=== PATIENT | male | born 1960 | race Caucasian/White ===

== ENCOUNTER → 2022-03-30 14:20 | Outpatient (BNVA) | payer BC, SELFPAY | PROVIDERS: PCP Family Medicine; Visit Provider Internal Medicine Cardiovascular Disease | DX: R07.9 Chest pain, unspecified (principal); I31.9 Disease of pericardium, unspecified; I25.10 Atherosclerotic heart disease of native coronary artery without angina pectoris; E78.5 Hyperlipidemia, unspecified; Z95.5 Presence of coronary angioplasty implant and graft | CPT/HCPCS: 36415; 80053; 80061; 83721; 85025; 85651; 86140 ==

== ENCOUNTER 2022-04-21 11:32 | Outpatient (CLI) | payer BC, SELFPAY ==
--- NOTE | 2022-04-21 11:15 | USCV_ITS ---
Malick Schilling Age: 61 Gender: M : 1960 Exam Date: 04/21/2022 11:55 Ordering Phys: Elise Holliday MD Technologist: BA Exam Location: [facility] [place] Indication: pericardial effusion BP: 112 / 76 HR: 65 Rhythm: Sinus Technical Quality: Adequate MEASUREMENTS (Male / Female) Normal Values 2D ECHO LV Diastolic Diameter PLAX 6.0 cm 4.2 - 5.9 / 3.9 - 5.3 cm LV Systolic Diameter PLAX 4.3 cm IVS Diastolic Thickness 0.6 cm 0.6 - 1.0 / 0.6 - 0.9 cm IVS Systolic Thickness 1.3 cm LVPW Diastolic Thickness 0.8 cm 0.6 - 1.0 / 0.6 - 0.9 cm LVPW Systolic Thickness 1.3 cm LVOT Diameter 2.4 cm LV Ejection Fraction 2D Teich 55.5 % LV Ejection Fraction MOD 2C 50.1 % LV Ejection Fraction 2C AL 47.6 % LA Diameter 3.9 cm IVC Diameter 1.9 cm M-MODE Aortic Annulus Diameter 2.8 cm LA Ao Ratio MM 1.6 MV E Point Septal Separation 0.5 cm DOPPLER AV Peak Velocity 105.0 cm/s LVOT Peak Velocity 87.0 cm/s AV Area Cont Eq vti 3.2 cm squared AV Area Cont Eq pk 3.7 cm squared MV Peak Velocity 73.0 cm/s MV Area PHT 5.0 cm squared Mitral E to A Ratio 1.0 MV E' Velocity 74.0 cm/s TR Peak Velocity 187.5 cm/s TR Peak Gradient 14.1 mmHg TR Mean Velocity 168.7 cm/s TR Mean Gradient 12.2 mmHg TR Velocity Time Integral 73.1 cm TV Peak E Velocity 74.0 cm/s Right Atrial Pressure 3.0 mmHg Pulmonary Artery Systolic Pressu 17.1 mmHg PV Peak Velocity 70.0 cm/s FINDINGS Left Ventricle Left ventricle is mildly dilated. LV systolic function is normal with EF of 50-55%. No regional wall motion abnormalities are seen. Right Ventricle Normal in size and function. Right Atrium Normal in size Left Atrium Normal in size Mitral Valve Structurally normal mitral valve. Trace mitral regurgitation. Aortic Valve Aortic valve is thickened. No significant stenosis or regurgitation. Tricuspid Valve Mild tricuspid regurgitation. Pulmonary artery systolic pressure is normal. Pulmonic Valve Not well visualized. Mild pulmonic regurgitation. Pericardium Normal. No significant pericardial effusion. Aorta Normal in size IVC IVC appears to be normal CONCLUSIONS Left ventricle is mildly dilated LV systolic function is normal with EF of 50-55% Trace mitral regurgitation Mild tricuspid regurgitation Mild pulmonic regurgitation No comparison studies are available Félix Cantu MD (Electronically Signed) Final Date: 29 April 2022 11:54 S
== END 2022-04-21 11:33 | disposition home or self-care (01) ==
PROVIDERS: PCP Family Medicine; Visit Provider Family Medicine
DX: I31.9 Disease of pericardium, unspecified (principal); I08.1 Rheumatic disorders of both mitral and tricuspid valves
CPT/HCPCS: 93306

== ENCOUNTER 2022-05-17 06:39 | Outpatient (CLI) | payer BC, SELFPAY ==
--- NOTE | 2022-05-17 | ECG_ITS ---
[facility] Test Date: 2022-05-17 Pat Name: Malick Schilling Department: Room: Gender: Male Gm/Svp [employer] Business: : 1960 Requested By: Juany Balderas Order Number: [id number] Castro MD: Juany Balderas M.D. Interpretive Statements NAME OF STUDY: LEXISCAN SESTAMIBI STRESS TEST INDICATION: Chest Pain PROCEDURE: At the baseline, the blood pressure was 121/95 mmHg with a heart rate of 68 beats per min. The electrocardiogram showed sinus rhythm with artifact. Nonspecific ST-T wave changes. The Lexiscan was infused over a period of 20 seconds. A total of 0.4 milligrams of Lexiscan was infused. The stress phase was continued for a total of 5 minutes. Heart rate at the end of the stress phase was 73 bpm with a blood pressure of 128/86 mmHg. The EKG at the peak infusion revealed sinus rhythm with no significant ST-T wave changes. The study was terminated to protocol completion. Sestamibi was injected 20 seconds after the Lexiscan infusion. Blood pressure at the end of the recovery phase was 113/83 mmHg with a heart rate of 73 beats per minute. CONCLUSION: 1. No significant EKG changes with the] LexiScan infusion. 2. No LexiScan induced chest pain or cardiac arrhythmia. 3. Normal blood pressure and heart rate response. 4. Sestamibi/sestamibi perfusion scan pending; see separate report. Electronically Signed On 05-22-2022 18:27:10 TRICOT KNITTER by Juany Balderas M.D. [id number]
--- NOTE | 2022-05-17 06:53 | NMCV_ITS ---
NM martina perf SPECT r/s* [id number] SchillingMalick Age: 61 Gender: M : 1960 Exam Date: 05/17/2022 07:53 Ordering Phys: Juany Balderas MD ([email or web address]) Technologist: BRAIN Herbert Exam Location: [facility] Indications: Exertional SOB, ATHEROSCLEROTIC HEART DISEASE OF [place] CORONARY ARTERY STRESS TEST Please see separate stress test report in [facility] for full findings IMAGE PROTOCOL Rest/Stress 1 Lexiscan Day Radiopharmaceutical Dose (mCi) Administration Site Administered by Rest: Tc-99m 10.7 IV BRAIN Solo Sestamibi Stress:Tc-99m 32.9 IV BRAIN Solo Sestamibi Rest: 05/17/2022 60 Discovery 630 Stress: 05/17/2022 30 Discovery 630 0.4mg Lexiscan. Images obtained in supine and prone position. SPECT RESULTS Technical Quality: Excellent Raw Data Analysis: Normal Image Corrections: No attenuation or motion correction applied Summed Stress Score: 2 Summed Rest Score: 0 Summed Difference Score: 2 PERFUSION FINDINGS Small sized perfusion abnormality of mild severity of basal inferior wall on stress images. FUNCTIONAL RESULTS (calculated via Gated SPECT) Stress Image LV EF (%): 58 Stress EDV (mL):115 TID: 0.77 Stress ESV (mL):48 FUNCTIONAL FINDINGS: The left ventricle is normal in size. Transient Ischemia Dilatation of 0.77. The left ventricular ejection fraction is normal with a value of 58%. There is normal left ventricular wall thickening. IMPRESSIONS 1. Small sized reversible perfusion abnormality of mild severity of basal inferior wall. 2. This may represent small area of ischemia in RCA territory. 3. Overall left ventricular systolic function is normal without regional wall motion abnormalities, LVEF=58%. 4. EKG portion of the study will be reported separately. Juany Balderas MD (Electronically Signed) Final Date: 20 May 2022 19:39 S
[2022-05-17 07:14] VITALS: BMI 34.7
[2022-05-17] MEDS: regadenoson 0.4 Mg/5 ml Syringe IVP (08:22)
[2022-05-17 08:40] VITALS: BP 113/83; PULSE 86
== END 2022-05-17 06:40 | disposition home or self-care (01) ==
PROVIDERS: PCP Family Medicine; Visit Provider Internal Medicine Cardiovascular Disease
DX: I25.10 Atherosclerotic heart disease of native coronary artery without angina pectoris (principal)
CPT/HCPCS: 36415; 78452; 93017; 96374; A9500; J2785

== ENCOUNTER 2022-06-08 05:49 | Outpatient (CLI) | payer BC, SELFPAY ==
[2022-06-08] VITALS (12 sets, daily range): BP systolic 106–137; BP diastolic 61–99; PULSE 58–90; RESP 9–26; TEMP 36.4–36.9; O2SAT 91–95; BMI 34.7
--- NOTE | 2022-06-08 06:00 | XACV_ITS ---
Exam Room: 2 Ht: 175 cm Wt: 107 kg BSA: 2.32 m2 Gender: Male : 1960 Any Known Allergies: No known allergies Exam Priority: Routine Procedure(s): Procedure Description: Diagnostic procedure Procedure Description: PCI procedure Procedure Description: Drug Eluting Coronary Stent Procedure Description: PTCA Procedure Description: Coronary Angiography Diagnostic Cath Status: Elective Diagnostic Findings * Patient with fairly typical rest angina at night associated with shortness of breath. Stress testing mildly abnormal in the distribution of the right coronary artery only. Previous stents in the LAD and right coronary arteries. * Procedure was completed from the right radial artery. The left main coronary artery is normal and bifurcates into the left anterior descending and circumflex. The circumflex is a relatively small vessel and contains diffuse luminal irregularities. There are no significant stenoses. The LAD is a large vessel and there is stents placed proximally. Just beyond the stents there were 2 small diagonal branches which come off in the same location. Just at this point of the distal stent, 2 diagonal branches there is a 70 to 80% stenosis of the mid LAD which is very tortuous. The remainder of the LAD appears normal. The right coronary artery is the dominant vessel. There is a cross's crook appearance to this vessel. In the proximal portion in the cross's crook there is a 90% stenosis. The stents are located in the mid and distal portions. The stents in the mid vessel are patent. More distally prior to the takeoff of the posterior descending artery there is severe in-stent restenosis with near total occlusion of the distal right coronary artery.. PCI Status: Elective PCI LVEF Assessed: No PCI Indication: NSTE - ACS Interventional Findings * Initially the area of the distal right coronary artery underwent plain old balloon angioplasty with a noncompliant balloon. In the area of the most severe stenosis there was fairly significant residual stenosis after the angioplasty was completed. Therefore in that area I placed a short 3.5 mm drug-eluting stent to treat as a stent within a stent. I then primarily stented the proximal right coronary artery with a 3.5 x 12 mm stent. My belief is that his symptoms are coming from the right coronary artery and that is where the ischemia is on stress testing. I considered intervening on the mid LAD but given the tortuosity, distal stent in that area and two branch arteries I was concerned that I could not get either a balloon or a stent into the lesion. Because there is no ischemia I chose to leave this alone. Decision for PCI with Surgical Consult: No PCI for Multi-vessel Disease: No Conclusions 1. In-stent restenosis of the distal right coronary artery which undergoes balloon angioplasty and restenting. Primary stenting of the proximal right coronary artery. Mid LAD lesion treated medically. Recommendations * Medical therapy. Interventional RX Recommendation: PCI w/o planned CABG Diagnostic RX Recommendation: PCI w/o planned CABG Anticoagulation: Heparin Pressures Phase:Rest AO : 119 / 90 ( 104 ) @ 7:51:00 AM 109 / 78 ( 93 ) @ 8:04:00 AM 109 / 83 ( 95 ) @ 8:11:00 AM 133 / 100 ( 115 ) @ 8:20:00 AM 119 / 89 ( 103 ) @ 8:22:00 AM 124 / 95 ( 110 ) @ 8:29:00 AM Clinical Evaluation EBL: 5mL-10mL Procedural Details Procedure Consent Obtained. Admit Source: Out Patient. Pre-Procedure Time Out. Identified patient by full name and date of as verbalized by the patient/guarantor. Does the consent match the physician's order: Yes. Accurate & Complete Informed Consent: Yes. Inpatient/Outpatient History & Physical on Chart: Yes. If H&P is completed, is and addenduem needed: Yes; If yes, is the addendum complete: Yes. Visualize and Verify Site with Patient/Guarantor: N/A. Relevant Radiology Images available: N/A. Pre-op teaching completed and patient verbalized understanding. The risks, benefits, and alternatives of sedation and/or procedure were discussed by physician. The patient agrees to continue. Procedure started. [facility] Clinical Fraility Score: 3: Managing Well. Placement Secretary Indications: Worsening Angina. Chest Pain Symptom Assessment: Typical Angina Symptoms. Correct patient, site and procedure confirmed by cath team. Current diagnosis: Chest Pain. PERRLA. Strong, equal hand client development director bilaterally. Lungs clear x 5 lobes. IV Site on Arrival: 20 gauge in the left anticubital. IV Fluids: 0.9% NaCl at KVO. 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 Pre Procedural Pulses: bilateral dorsalis pedis was 3+. Pre Procedural Pulses: bilateral radial was 3+. Oxygen started at 2liters/min via nasal canula. right groin was prepped with chloroprep then draped in the usual sterile fashion. right radial was prepped with chloroprep then draped in the usual sterile fashion. Baseline sample Acquired. HR: 64 BPM. Physician notified. Physician arrived. Physician scrubbed in. Immediate Pre-Procedure Time Out. Correct Patient: Yes; Correct Procedure: Yes; Correct Site: Yes; Correct Patient Position: Yes; Correct Supplies: Yes; Dried Flammable Prep: Yes; Blood Products Available: N/A;. Lidocaine 1% infiltrated to the right radial. Arterial access obtained. A 6 upper sorbian TIG catheter in over wire. Catheter redirected to the RCA. Catheter removed over the exchange wire. A 6 upper sorbian JR4 catheter in over wire. Multiple views taken of left coronary artery. Multiple views taken of right coronary artery. Catheter removed over the exchange wire. 6 upper sorbian JR 4 guide catheter was inserted over the wire. [place] guidewire was advanced through the guide catheter to lesion in the distal RCA. Balloon inserted to lesion in the distal RCA. Inflation number : 1 A MDT NC EUPHORA RX [id number] BALLOON was prepped and advanced across the Dist RCA , then inflated to 12 TERI for 0:15 seconds. Inflation number: The MDT NC EUPHORA RX [id number] BALLOON was reinflated across the Dist RCA, to 12 TERI for 0:15 seconds. Inflation number: 3 The MDT NC EUPHORA RX [id number] BALLOON was reinflated across the Dist RCA, to 20 TERI for 0:20 seconds. Results checked. Balloon out. Balloon inserted to lesion in the distal RCA. Inflation number : 4 A MDT NC EUPHORA RX [id number] BALLOON was prepped and advanced across the Dist RCA , then inflated to 12 TERI for 0:30 seconds. Inflation number: 5 The MDT NC EUPHORA RX [id number] BALLOON was reinflated across the Dist RCA, to 12 TERI for 0:20 seconds. Results checked. Balloon out. Inflation Number : 6 A MDT R SARIAH 3.5X8 LAUREN -Lot Number# [id number] was prepped and advanced across the Dist RCA. The stent was deployed at 16 TERI for 0:26 seconds. EXP 09/08/24. Results checked. Stent balloon out over wire. Inflation Number : 1 A MDT R SARIAH 3.5X12 LAUREN -Lot Number# [id number] was prepped and advanced across the Prox RCA. The stent was deployed at 14 TERI for 0:26 seconds. EXP 11/21/23. Results checked. Stent balloon and wire out. Physician review of films. Guide catheter out over the exchange wire. 6 upper sorbian XB 3.5 guide catheter was inserted over the wire. Family updated. Guide seated in the LCS. [employer] guidewire was advanced through the guide catheter to lesion in the mid LAD. Guidewire advanced across lesion. 4.0mm x 8mm stent unable to cross. Removed intact. Wire removed. Guide removed over the wire. Physician scrubbed out. A TR Band was successful obtaining hemostatsis at the Right Radial artery insertion site. TR band placed. Hemostasis obtained. Post Procedure: Pulses reassessed and unchanged. PERRLA. Strong, equal hand client development director bilaterally. No VTE prophylaxis required. Medication waste:75 mcg Fentanyl, 1000 units Heparin, 49.8 mg Heparin. Total IV fluids: 82 mL. Fluoro: 15:09. Contrast type used: Omnipaque 300 mgI/mL, 500 mL bottle. Omnipaque 218 ml. Post-op diagnosis: CAD. Complications: NONE. Estimated blood loss: 5mL-10mL. Responsiveness - Normal response to verbal stimuli; alert and oriented, PERRLA. Airway - Unaffected, no intervention required; spontaneous ventilation. Circulation: W/N/L, pulses unchanged. Nausea/Vomiting: No. Procedure completed. Patient transferred by wheelchair to CPRU. Current Diagnosis : Chest Pain. Vital chart was stopped. Access Site Site: Right Radial artery Sheath Size: 6 Fr Hemostasis Method: TR Band Hemostasis Success: Successful Procedure Medications Start: 7:35 AM Stop: 7:35 AM Medication: Versed Amount: 1 mg Route: I.V. Start: 7:35 AM Stop: 7:35 AM Medication: Fentanyl Amount: 50 mcg Route: I.V. Start: 7:43 AM Stop: 7:43 AM Medication: Versed Amount: 1 mg Route: I.V. Start: 7:46 AM Stop: 7:46 AM Medication: Fentanyl Amount: 25 mcg Route: I.V. Start: 7:48 AM Stop: 7:48 AM Medication: Versed Amount: 1 mg Route: I.V. Start: 7:50 AM Stop: 7:50 AM Medication: Nitrogylcerin Amount: 200 mcg Route: I.A. Start: 7:51 AM Stop: 7:51 AM Medication: Heparin Amount: 5000 units Route: I.V. Start: 8:24 AM Stop: 8:24 AM Medication: Fentanyl Amount: 25 mcg Route: I.V. Start: 8:25 AM Stop: 8:25 AM Medication: Versed Amount: 1 mg Route: I.V. Start: 8:34 AM Stop: 8:34 AM Medication: Versed 1 mg and Fentanyl 25 mcg Amount: 1 Route: I.V. I, the attending physician, have reviewed and verified all procedure medications. Yes, all medications given per verbal order History/Risk Factors Hypertension: Yes Dyslipidemia: Yes Peripheral Arterial Disease (PAD): No Myocardial Infarction (UT): Yes Obesity: Yes Renal Disease: No Tobacco Use: Former Prior Interventions PCI: Yes CABG: No Valve Surgery: No Date of PCI: 06/04/2013 Report Signatures Finalized by Dr. Fidel Rosado MD on 06/08/2022 09:11 AM
[2022-06-08] MEDS: diphenhydrAMINE 50 mg Capsule PO (06:30)
[2022-06-08 06:37] LABS: Basophils % 0.3 %; Eosinophils # 0.1 10^3/uL (0.0-0.8); Eosinophils % 1.4 %; Hematocrit 44.8 % (42.0-52.0); Hemoglobin 15.2 g/dL (11.7-16.6); Lymphocytes # 2.4 10^3/uL (0.8-4.8); Mean Corpuscular HGB Conc 33.9 g/dL (30.0-36.0); Mean Corpuscular Hemoglobin 31.7 pg (28.0-34.0); Mean Corpuscular Volume 93.5 fl (80-94); Mean Platelet Volume 11.7 fL (7.4-10.4); Monocytes # 0.8 10^3/uL (0.2-0.9); Neutrophils % 64.9 %; Nucleated Red Blood Cells % 0 %; Platelet Count 176 10^3/cmm (130-400); Red Blood Count 4.79 10^6/uL (4.1-5.3); Red Cell Distribution Width 12.1 % (12.1-15.1); White Blood Count 9.6 10^3/uL (4.0-10.0)
[2022-06-08 07:03] LABS: Anion Gap 15.2 (5-19); Blood Urea Nitrogen 16 mg/dL (8-23); Calcium 8.9 mg/dL (8.5-10.5); Carbon Dioxide 26 mmol/L (22-29); Chloride 105 mmol/L (98-107); Glomerular Filtration Rate 98.6 mL/min (90-130); Glucose 102 mg/dL (65-115); Osmolality Calculated 295 mOsm/kg (285-295); Potassium 4.2 mmol/L (3.5-5.1); Sodium 142 mmol/L (136-145)
--- NOTE | 2022-06-08 07:27 | P.HP_ITS ---
Providers/Chief Complaint Admitting Physician: bull Primary Care Provider: Elise Holliday MD Chief Complaint: Chest pain, shortness of breath History of Present Illness Malick Schilling is a 61 year old male who has a prior inferior wall IA and had stents placed in his right coronary artery. He was first stented in 2008 and then again around 2013. I believe there was an acute inferior wall IA in there as well. He has been lost to follow-up and in December of last year had pneumonia while he was in [place]. Later on that year he had pneumonia and was 4 days in the hospital here. He states that he did not have COVID recently. He had been a smoker 45 pack years but quit recently. Somewhere along the line in the last several months he saw someone who treated him for pericarditis. He was treated with colchicine for 3 months and indomethacin for about a month. He is not cer tain that he had pericarditis but he states after the treatment the pain got better. Over the last several weeks to months the patient has been complaining of extreme shortness of breath. This occurs at rest and with exercise. He states that he cannot do very much without being short of breath. On occasion his shortness of breath will be accompanied by chest pressure. He can also experience the chest pressure by itself. His chest pressure is usually nocturnal and usually occurs when he lays down to go to sleep. As a result of this patient saw Dr. Jiang in March of last year. An echo was done on April 21 which revealed an ejection fraction of 50 to 55% with no valvular disease. A sestamibi examination was done on May 17 and revealed a very small size reversible perfusion abnormality of the basilar inferior wall suggesting a small area of ischemia in the right coronary artery territory. However it is known that his right coronary artery is occluded. His ejection fraction was normal. Review of Systems Narrative: Negative except for what is in the history of present illness. Medications/Allergies Home Medications Medication Instructions Recorded Confirmed Last Taken Type aspirin 81 mg tablet,delayed 81 mg PO BID 03/30/22 06/07/22 Unknown History release (Adult Low Dose Aspirin) coenzyme Q10 100 mg capsule (Co 100 mg PO DAILY 03/30/22 06/07/22 Unknown History Q-10) valacyclovir 500 mg tablet 500 mg PO DAILY PRN Cold Sores 03/30/22 06/07/22 Unknown History metoprolol tartrate 50 mg tablet 50 mg PO BID #180 tabs 04/03/22 06/07/22 Unknown Rx rosuvastatin 40 mg tablet 40 mg PO DAILY #90 tabs 04/03/22 06/07/22 Unknown Rx clopidogrel 75 mg tablet (Plavix) 75 mg PO DAILY #30 tabs 06/06/22 06/07/22 Unknown Rx Allergies Allergy/AdvReac Type Severity Reaction Status Date / Time No Known Allergies Allergy Unverified 01/30/22 12:12 PFSH Acute PFSH: Medical History (Updated 06/08/22 @ 07:35 by Fidel Rosado MD) CAD (coronary artery disease) Dyslipidemia History of heart attack Hypertension SOB (shortness of breath) Surgical History History of heart artery stent Family History Father Aortic aneurysm Social History Smoking and tobacco status: former smoker Quit status (tobacco): has quit using tobacco Year quit tobacco: november 2021 Alcohol intake: never Vitals/I&O/Wt Last Vital Signs Temp 98.4 F 06/08/22 06:30 Pulse 64 06/08/22 06:30 Resp 18 06/08/22 06:30 BP 137/99 06/08/22 06:30 Pulse Ox 93 06/08/22 06:30 O2 Del Method 06/08/22 06:30 Weight last 48 hrs Weight 235 lb Physical Exam Narrative: GENERAL: He is comfortable at rest. HEENT: Exam within normal limits. NECK: Supple without jugular vein distention. The carotid upstroke is normal without bruits. BACK: Exam normal. LUNGS: Clear. HEART: Regular rate and rhythm. ABDOMEN: Benign without organomegaly or tenderness. EXTREMITIES: No edema. NEUROLOGIC: Exam normal. SKIN: Unremarkable. Data 06/08/22 06:10 06/08/22 06:10 A&P Assessment and plan (1) Hypertension: (2) Dyslipidemia: (3) CAD (coronary artery disease): (4) Chest pain: (5) Pericarditis: (6) History of heart artery stent: (7) SOB (shortness of breath): Plan He is being admitted for the purposes of left heart catheterization to assess his symptoms and the abnormal stress test and abnormal echo. Attestations Medical Necessity Statement*: Admission to the Properties Supervisor for purposes of coronary angiography. Outpatient in a bed. Coding Level of Care Code New Pt Acute Milieu Counselor for [facility] Fwd Patient Type New History Detailed Exam Detailed Medical Decision Making Moderate Complexity Diagnoses Hypertension I10 Dyslipidemia E78.5 CAD (coronary artery disease) I25.10 Chest pain R07.9 Pericarditis I31.9 History of heart artery stent Z95.5 SOB (shortness of breath) R06.02
--- NOTE | 2022-06-08 08:50 | SUR.PHASEI ---
POST CATH NOTE Patient to CPRU-3 status post cardiac cath/pci via the right radial approach. TR band in place to radial access site and is hemostatic. Family at bedside. Tolerating PO fluids now with no difficulty. Verbal post cath instructions given which he understood. Call light within reach.
--- NOTE | 2022-06-08 09:07 | SUR.PHASEI ---
POST OP FLUIDS. NS 0.9% infusing post cath as ordered.
[2022-06-08] MEDS: aspirin 81 mg EC Tablet PO ×2 (10:17→17:27)
[2022-06-08] MEDS: clopidogrel 75 mg Tablet PO (10:17)
[2022-06-08] MEDS: sodium chloride 0.9% 1,000 ML 100 ML IV ×2 (10:19→19:40)
--- NOTE | 2022-06-08 15:14 | PC.NURSE ---
Slight minimal oozing at Right radial site. 6cc of air had been removed up to this point, 6cc air added back. No hematoma, soft, cap refill <3 sec, RUE warm to touch. Will monitor.
[2022-06-08] MEDS: metoprolol tartrate 50 mg Tablet PO (17:27)
--- NOTE | 2022-06-08 18:00 | PC.NURSE ---
9ml of air remain on TR band. Patient has been reeducated on multiple occasions to limit use of right arm and has continued to use it freely. Will cont to monitor closely.
--- NOTE | 2022-06-08 19:36 | PC.NURSE ---
Patient turned off his own IV pump. Stated it beeped three times. Instructed to push call light in the future.
--- NOTE | 2022-06-08 21:45 | PC.NURSE ---
Addendum entered by Mechelle Archibald RN 06/09/22 02:54: Report obtained from JANA Romo at 1930. At time of report, TR band still in place with an estimated 9mls instilled. No drainage noted at the site. 1-2ml removed at a time every 15-30 minutes until removed. No additional bleeding. Neurovascularly intact, distal pulse palpable, capillary refill less than 3, patient denies numbness throughout removal process. TR band removed at 2144 without complication. Patient re-educated regarding limiting use of the right upper ext., he verbalized understanding and is agreeable. Original Note: 06/09/2022
--- NOTE | 2022-06-09 00:13 | PC.NURSE ---
Patient came storming out of room, states that he does not want anything hooked up to him anymore because he is unable to sleep. This is first notification to nurse in regards to monitors and IV pump. IV pump was shut off by patient. Fluids disconnected. Patient returned back to room, was able to convince him to reapply cardiac monitors, however in room monitor placed in sleep mode. Patient agreeable to this. Denies any further complaints.
--- NOTE | 2022-06-09 03:46 | PC.NURSE ---
Patient again stormed out of room, requesting that his monitor and roommate monitor be shut off. Patient expressed concern that aid left monitor on intentionally being vindictive after obtaining vitals. Monitors again placed on sleep mode in the room. Denies any further needs. Encouraged to use call light.
[2022-06-09 03:50] VITALS: BP 115/80; PULSE 82; RESP 15; TEMP 36.8; O2SAT 92
[2022-06-09 06:00] VITALS: PULSE 64
--- NOTE | 2022-06-09 07:13 | P.DS_ITS ---
Discharge Providers Date of Admission: 06/08/22 Date of Discharge: June 09, 2022 Attending Provider at Admission: bull Attending Provider at Discharge: Fidel Rosado MD Primary Care Provider: Elise Holliday MD Diagnoses at Discharge Discharge Diagnosis (1) Hypertension: Status: Acute (2) Dyslipidemia: Status: Acute (3) CAD (coronary artery disease): Status: Acute (4) Chest pain: Status: Acute (5) Pericarditis: Status: Acute (6) History of heart artery stent: Status: Acute (7) SOB (shortness of breath): Status: Acute (8) Unstable angina: Status: Acute Reason for Visit Reason for Visit: Chest pain, shortness of breath Brief History: Patient has known coronary artery disease. He presented a couple months ago with accelerating shortness of breath and chest pain consistent with angina. This progressed to chest pain at rest. He underwent echocardiography and subsequently stress testing. There was a small amount of ischemia in the distribution of the right coronary artery. He has known coronary disease with previously placed stents in the mid and distal right coronary artery in the proximal left anterior descending. He was admitted electively for purposes of coronary angiography. Hospital Course Hospital Course And left main coronary artery is normal. The circumflex is unremarkable. The previously placed LAD stents are patent. Just at the distal edge of the LAD stents there is an area of tortuosity and also the point where to septal branches takeoff. There is probably a 70% lesion in this area. The right coronary artery exhibited a 85% lesion in the proximal part right at the cross's crook. This had never been stented. In the distal right there was significant in-stent restenosis up to 99% prior to the bifurcation of the posterior descending artery and posterior left ventricular branches. The distal right underwent balloon angioplasty followed by placement of another stent within the area that was most severely narrowed. The proximal right right underwent primary stenting. I considered an attempt to intervene on the mid LAD however the tortuosity, the previously placed stent and the worry about closing the 2 branches prevented me from doing so. I also considered that there was no ischemia noted on stress test in the distribution of the LAD. Patient tolerated the procedure well. There were no complications with the entry site of the right radial artery. At the time of discharge there was no bleeding, hematoma or other vascular anomaly. He and I had a number of discussions about his medications. His LDL cholesterol is 53 on a lower dose of generic Crestor. We will leave him on that lower dose. He will abide by the request not to lift anything over 5 pounds for 2 days with the right upper extremity upon his discharge. Physical Exam Narrative: GENERAL: In general he is comfortable at rest and ready to go home HEENT: Exam within normal limits. NECK: Supple without jugular vein distention. The carotid upstroke is normal without bruits. BACK: Exam normal. LUNGS: Clear. HEART: Regular rate and rhythm. ABDOMEN: Benign without organomegaly or tenderness. EXTREMITIES: No edema. The right radial artery entry site is flat, dry without bleeding, hematoma or any other vascular problem. NEUROLOGIC: Exam normal. SKIN: Unremarkable. Discharge Data Studies Completed and Pending Completed Studies During Hospitalization Category Date Time Status [employer] request for service Routine Exams 06/08/22 06:00 Completed Laboratory Results WBC 9.6 10^3/uL (4.0-10.0) 06/08/22 06:10 RBC 4.79 10^6/uL (4.1-5.3) 06/08/22 06:10 Hgb 15.2 g/dL (11.7-16.6) 06/08/22 06:10 Hct 44.8 % (42.0-52.0) 06/08/22 06:10 MCV 93.5 fl (80-94) 06/08/22 06:10 MCH 31.7 pg (28.0-34.0) 06/08/22 06:10 MCHC 33.9 g/dL (30.0-36.0) 06/08/22 06:10 RDW 12.1 % (12.1-15.1) 06/08/22 06:10 Plt Count 176 10^3/cmm (130-400) 06/08/22 06:10 MPV 11.7 fL (7.4-10.4) H 06/08/22 06:10 Neut % (Auto) 64.9 % 06/08/22 06:10 Lymph % (Auto) 25.0 % 06/08/22 06:10 Wayne % (Auto) 8.0 % 06/08/22 06:10 Eos % (Auto) 1.4 % 06/08/22 06:10 Baso % (Auto) 0.3 % 06/08/22 06:10 Neut # (Auto) 6.20 10^3/uL (1.8-7.7) 06/08/22 06:10 Lymph # (Auto) 2.4 10^3/uL (0.8-4.8) 06/08/22 06:10 Wayne # (Auto) 0.8 10^3/uL (0.2-0.9) 06/08/22 06:10 Eos # (Auto) 0.1 10^3/uL (0.0-0.8) 06/08/22 06:10 Baso # (Auto) 0.0 10^3/uL (0.0-0.1) 06/08/22 06:10 Nucleated RBC % (auto) 0 % 06/08/22 06:10 Nucleated RBCs # 0.0 /100WBC 06/08/22 06:10 Sodium 142 mmol/L (136-145) 06/08/22 06:10 Potassium 4.2 mmol/L (3.5-5.1) 06/08/22 06:10 Chloride 105 mmol/L (98-107) 06/08/22 06:10 Carbon Dioxide 26 mmol/L (22-29) 06/08/22 06:10 Anion Gap 15.2 (5-19) 06/08/22 06:10 BUN 16 mg/dL (8-23) 06/08/22 06:10 Creatinine 0.8 mg/dL (0.7-1.2) 06/08/22 06:10 GFR Calculation 98.6 mL/min (90-130) 06/08/22 06:10 Glucose 102 mg/dL (65-115) 06/08/22 06:10 Calculated Osmolality 295 mOsm/kg (285-295) 06/08/22 06:10 Calcium 8.9 mg/dL (8.5-10.5) 06/08/22 06:10 Procedures Performed Coronary angiography, stenting of the proximal and distal right coronary artery Vitals Last Vital Signs Temp 98.3 F 06/09/22 03:50 Pulse 64 06/09/22 06:00 Resp 15 06/09/22 03:50 BP 115/80 06/09/22 03:50 Pulse Ox 92 06/09/22 03:50 O2 Del Method 06/08/22 20:48 O2 Flow Rate 2 06/08/22 20:48 Discharge Plan Discharge Patient Disposition: Home Prescriptions: New rosuvastatin 20 mg tablet 20 mg PO DAILY Qty: 30 2RF Continued coenzyme Q10 [Co Q-10] 100 mg capsule 100 mg PO DAILY valacyclovir 500 mg tablet 500 mg PO DAILY PRN (Reason: Cold Sores) aspirin [Adult Low Dose Aspirin] 81 mg tablet,delayed release (DR/EC) 81 mg PO BID metoprolol tartrate 50 mg tablet 50 mg PO BID Qty: 180 3RF clopidogrel [Plavix] 75 mg tablet 75 mg PO DAILY Qty: 30 3RF Discontinued rosuvastatin 40 mg tablet 40 mg PO DAILY Qty: 90 3RF Discharge Orders: Discharge Order (Routine); Ordered 06/09/22 Ordered By: Fidel Rosado Referrals: Fidel Rosado MD [Physician] - 3 months Melly Gutierres FNP [Nurse Practitioner] - 7-10 days (Right radial artery check, chemistry panel.) Diet: Cardiac Activity: Increase activity as tolerated and Limit activity as instructed Activity Restrictions/Additional Instructions: No lifting over 5 pounds with the right arm for 2 days Discharge Attestations Time Spent in Discharge Care*: greater than 30 min Quality Metrics Clinical Quality Measures [ No reported AMI, CVA or VTE this stay] Coding Level of Care Code Established Pt Acute Chg FW DC note Patient Type Established History Detailed Exam Detailed Medical Decision Making Moderate Complexity Diagnoses Hypertension I10 Dyslipidemia E78.5 CAD (coronary artery disease) I25.10 Chest pain R07.9 Pericarditis I31.9 History of heart artery stent Z95.5 SOB (shortness of breath) R06.02 Unstable angina I20.0
[2022-06-09 08:00] VITALS: PULSE 85; O2SAT 94
[2022-06-09] MEDS: clopidogrel 75 mg Tablet PO (08:29)
[2022-06-09] MEDS: aspirin 81 mg EC Tablet PO (08:29)
[2022-06-09] MEDS: metoprolol tartrate 50 mg Tablet PO (08:30)
[2022-06-09 08:45] VITALS: PULSE 64
--- NOTE | 2022-06-09 09:31 | PC.NURSE ---
discharge instructions given and explained.pt verb understanding of instructions.discharged ambulatory to exit.friend to drive pt home
== END 2022-06-09 09:33 | disposition home or self-care (01) ==
LOC: CCL 07:29 → CSU 09:45
PROVIDERS: PCP Family Medicine; Visit Provider Internal Medicine Cardiovascular Disease
DX: I25.110 Atherosclerotic heart disease of native coronary artery with unstable angina pectoris (principal); I10 Essential (primary) hypertension; E78.5 Hyperlipidemia, unspecified; I31.9 Disease of pericardium, unspecified; Z95.5 Presence of coronary angioplasty implant and graft; I25.2 Old myocardial infarction; Z87.891 Personal history of nicotine dependence; Z79.82 Long term (current) use of aspirin; E66.9 Obesity, unspecified; Z68.34 Body mass index [BMI] 34.0-34.9, adult
CPT/HCPCS: 36415; 80048; 85025; 93454; 96361; 96365; 99152; 99153; C1725; C1769; C1874; C1887; C1894; C9600; J0461; J1644; J2250; J3010; J3490; J7030; Q0163; Q9967

== ENCOUNTER → 2022-06-15 16:17 | Outpatient (BNVA) | payer BC, SELFPAY | PROVIDERS: PCP Family Medicine; Visit Provider Nurse Practitioner Family | DX: I25.10 Atherosclerotic heart disease of native coronary artery without angina pectoris (principal) | CPT/HCPCS: 36415; 80048 ==

== ENCOUNTER → 2022-08-16 10:45 | Outpatient (BNVA) | payer BC, SELFPAY | PROVIDERS: PCP Family Medicine; Visit Provider Family Medicine | DX: M10.9 Gout, unspecified (principal); I10 Essential (primary) hypertension; E78.5 Hyperlipidemia, unspecified; R79.89 Other specified abnormal findings of blood chemistry | CPT/HCPCS: 80053; 80061; 84403; 84550; 85025 ==

== ENCOUNTER 2023-05-07 16:25 | Outpatient (CLI) | payer BC, SELFPAY ==
--- NOTE | 2023-05-07 16:37 | XRR_ITS ---
PROCEDURE INFORMATION: Exam: XR Lumbosacral Spine Exam date and time: 05/07/2023 4:45 PM Age: 62 years old Clinical indication: Low back pain; Additional info: Progressive low back pain TECHNIQUE: Imaging protocol: Radiologic exam of the lumbosacral spine. Views: 2 or 3 views. COMPARISON: No relevant prior studies available. FINDINGS: Bones/joints: Assuming that the 12th rib pairs are hypoplastic, there are 5 lumbar type vertebral bodies. There is approximately 2 mm retrolisthesis L1 on L2 and approximately 5 mm retrolisthesis L2 on L3. Other levels show normal alignment. There is mild anterior wedge configuration T11, T12, L1 and L2 which appear chronic. No acute fracture is detected. There is multilevel degenerative disc disease and spondylosis. There is multilevel facet degenerative change. There are degenerative changes in the sacroiliac joints. Soft tissues: Unremarkable. Gastrointestinal tract: The bowel-gas pattern is not obstructed. Vasculature: There are atherosclerotic changes in the abdominal aorta. XR/XR lumbar spine 2-3V* [id number] IMPRESSION: 1. Minor subluxations as described 2. Negative for acute fracture 3. Multilevel degenerative disc disease and spondylosis 4. Facet degenerative changes. Sacroiliac joint degenerative changes.
== END 2023-05-07 16:26 | disposition home or self-care (01) ==
PROVIDERS: PCP Family Medicine; Visit Provider Family Medicine
DX: M51.16 Intervertebral disc disorders with radiculopathy, lumbar region (principal); M51.36 Other intervertebral disc degeneration, lumbar region; M47.816 Spondylosis without myelopathy or radiculopathy, lumbar region; M47.818 Spondylosis without myelopathy or radiculopathy, sacral and sacrococcygeal region
CPT/HCPCS: 72100

== ENCOUNTER → 2023-12-04 10:20 | Outpatient (BNVA) | payer BC, SELFPAY | PROVIDERS: PCP Family Medicine; Visit Provider Family Medicine | DX: I10 Essential (primary) hypertension (principal); E78.5 Hyperlipidemia, unspecified | CPT/HCPCS: 80053; 84153; 84403; 85025 ==

== ENCOUNTER 2024-02-13 07:05 | Day surgery (SDC) | payer BC, SELFPAY ==
[2024-02-13 07:19] VITALS: BP 128/82; PULSE 72; RESP 16; TEMP 36.1; O2SAT 97; BMI 34.4
--- NOTE | 2024-02-13 07:38 | PM.HP ---
Providers/Chief Complaint Primary Care Provider: Elise Holliday MD Chief Complaint: Z12.11 History of Present Illness Malick Schilling is a 63 year old male Review of Systems General: Reports: 10 or more systems reviewed and unremarkable except in HPI and below Medications/Allergies Home Medications Medication Instructions Recorded Confirmed Last Taken Type aspirin 81 mg tablet,delayed 81 mg PO BID 03/30/22 02/13/24 02/08/24 History release (Adult Low Dose Aspirin) coenzyme Q10 100 mg capsule (Co 100 mg PO DAILY 03/30/22 02/11/24 02/08/24 History Q-10) nitroglycerin 0.4 mg sublingual 0.4 mg sublingual Q5M PRN chest 08/16/22 02/13/24 Unknown Rx tablet pain #30 tabs metoprolol tartrate 50 mg tablet 50 mg PO BID #180 tabs 08/10/23 02/13/24 02/12/24 Rx colchicine 0.6 mg tablet 0.6 mg PO BID PRN gout flare ups 09/20/23 02/13/24 3 Months Ago Rx #60 tabs ~11/13/23 valacyclovir 1 gram tablet 1,000 mg PO DAILY PRN recurrent 09/20/23 02/13/24 Unknown Rx simplex infection #90 tabs diclofenac sodium 75 mg 75 mg PO BID PRN pain #60 tabs 12/05/23 02/13/24 1 Month Ago Rx tablet,delayed release ~01/13/24 hydrocortisone 2.5 % topical cream 1 applic GA QID hemorrhoids 10 12/24/23 02/11/24 Unknown Rx with perineal applicator days #30 grams (Anusol-HC) clopidogrel 75 mg tablet 75 mg PO DAILY 02/13/24 02/13/24 02/08/24 History Allergies Allergy/AdvReac Type Severity Reaction Status Date / Time No Known Allergies Allergy Verified 12/24/23 09:57 PFSH Acute PFSH: Medical History Fatigue Recurrent herpes simplex Gout Unstable angina SOB (shortness of breath) History of heart attack Dyslipidemia CAD (coronary artery disease) Hypertension Surgical History History of heart artery stent Family History Father Aortic aneurysm Social History Smoking and tobacco/nicotine status: current every day tobacco/nicotine user Quit status (tobacco/nicotine): has quit using Year quit tobacco: november 2021 Alcohol intake: never Vitals/I&O/Wt Last Vital Signs Temp 97.0 F L 02/13/24 07:19 Pulse 72 02/13/24 07:19 Resp 16 02/13/24 07:19 BP 128/82 02/13/24 07:19 Pulse Ox 97 02/13/24 07:19 O2 Del Method Room Air 02/13/24 07:19 Weight last 48 hrs Weight 233 lb A&P Assessment and plan (1) Colon cancer screening: Plan Colonoscopy Attestations Medical Necessity Statement*: Home Coding Level of Care Code Acute Code for Chg Fwd Diagnoses Colon cancer screening Z12.11
--- NOTE | 2024-02-13 08:14 | PC.NURSE ---
PT REQUESTED TO HAVE PROCEDURE RE-SCHEDULED. PT DID NOT WANT TO WAIT FOR DR. MC TO COME SEE HIM IN PRE-OP DR. MC WOULD BE COMING TO SEE PT AFTER HE COMPLETES PROCEDURE THAT HE IS IN.
== END 2024-02-13 09:55 | disposition home or self-care (01) ==
PROVIDERS: PCP Family Medicine; Visit Provider Surgery
PROC: 0DJD8ZZ Inspection of Lower Intestinal Tract, Via Natural or Artificial Opening Endoscopic (ICD-10-PCS; CPT 45378; principal; 2024-02-13 08:00)
DX: Z12.11 Encounter for screening for malignant neoplasm of colon (principal); Z53.20 Procedure and treatment not carried out because of patient's decision for unspecified reasons

== ENCOUNTER → 2024-06-12 11:48 | Outpatient (BNVA) | payer BC, SELFPAY | PROVIDERS: PCP Family Medicine; Visit Provider Family Medicine | DX: I10 Essential (primary) hypertension (principal); R30.0 Dysuria; N34.2 Other urethritis; N40.0 Benign prostatic hyperplasia without lower urinary tract symptoms; E78.5 Hyperlipidemia, unspecified | CPT/HCPCS: 80053; 80061; 81000; 85025; 87491; 87591; G0103 ==